=== PATIENT | female | born 1975 | race American Indian/Alaskan Native ===

== ENCOUNTER 2016-08-17 11:29 | Outpatient (CLI) | payer MEDICAID ==
[2016-08-17 12:30] VITALS: BP 109/64
--- NOTE | 2016-08-17 14:39 | Ultrasound Report ---
BIOPHYSICAL PROFILE: INDICATION: Gestational DM. COMPARISON: None similar. TECHNIQUE: Transabdominal ultrasound with Doppler interrogation. 2 - breathing movements 2 - movements 2 - posture and tone 2 - Qualitative amniotic fluid volume 8 - TOTAL SCORE OF POSSIBLE 8 Heart Rate (bpm) 157
--- NOTE | 2016-08-17 14:40 | Ultrasound Report ---
OB LIMITED INDICATION: Gestational DM. COMPARISON: None similar at this institution. TECHNIQUE: Transabdominal grayscale ultrasound with Doppler interrogation. Gestation: Franco Position: Cephalic Amniotic Fluid: WNL (7-24 cm) MISHA = 11.4 cm Heart Rate: 162 BPM
== END 2016-08-17 14:00 | disposition home or self-care (01) ==
LOC: TRG 11:29
PROVIDERS: ATTEND Obstetrics & Gynecology
DX: O09.523 Supervision of elderly multigravida, third trimester (principal); O24.419 Gestational diabetes mellitus in pregnancy, unspecified control; O47.03 False labor before 37 completed weeks of gestation, third trimester; Z3A.33 33 weeks gestation of pregnancy
CPT/HCPCS: 59025; 76815; 76819

== ENCOUNTER 2016-08-22 08:05 | Outpatient (CLI) | payer OTHER, MEDICAID ==
[2016-08-22] MEDS ORDERED: LACTATED RINGERS 500 ML IV ONE (08:19)
[2016-08-22 08:27] VITALS: BP 106/62
[2016-08-22] MEDS ORDERED: LACTATED RINGERS 1,000 ML IV ONE (08:30)
[2016-08-22] MEDS ORDERED: ZOFRAN IV NR (08:52)
[2016-08-22] MEDS ORDERED: FLEET PR NR (08:52)
[2016-08-22] MEDS ORDERED: COLACE PO NR (08:53)
== END 2016-08-22 10:23 | disposition home or self-care (01) ==
LOC: TRG 08:05
PROVIDERS: ATTEND Obstetrics & Gynecology
DX: O09.523 Supervision of elderly multigravida, third trimester (principal); Z3A.32 32 weeks gestation of pregnancy
CPT/HCPCS: 59025; 82962; 96360; 96374; J2405; J7120

== ENCOUNTER 2016-09-28 12:29 | Inpatient (IN) | payer OTHER, MEDICAID ==
--- NOTE | 2016-09-28 14:48 | Ultrasound Report ---
ULTRASOUND BIOPHYSICAL PROFILE: History: well being Technique: Transabdominal ultrasound with Doppler interrogation. 2 - breathing movements 2 - movements 0 - posture and tone 2 - Qualitative amniotic fluid volume 6 - TOTAL SCORE OF POSSIBLE 8 Heart Rate (bpm) 144
--- NOTE | 2016-09-28 14:59 | Ultrasound Report ---
ULTRASOUND OB LIMITED History: well being Technique: Transabdominal ultrasound with Doppler interrogation. Gestation: Single Position: Cephalic Amniotic Fluid: Normal MISHA = 7.7 cm Heart Rate: 153 BPM
[2016-09-28] MEDS ORDERED: LACTATED RINGERS 2,000 ML ONE (15:25)
[2016-09-28] MEDS ORDERED: PEPCID IV ONE (16:02)
[2016-09-28] MEDS ORDERED: BICITRA PO ONE (16:02)
[2016-09-28] MEDS ORDERED: REGLAN IV ONE (16:02)
[2016-09-28] MEDS ORDERED: REGLAN ONE (16:03)
--- NOTE | 2016-09-28 16:03 | Anesthesia Consultation ---
Anesthesia Consult and Med Hx Date of service: 09/28/16 - Airway Anesthetic Teeth Evaluation: Good ROM Head & Neck: Adequate Mental/Hyoid Distance: Adequate Mallampati Class: Class II Intubation Access Assessment: Possibly Difficult - Pulmonary Exam CTA: Yes - Cardiac Exam Cardiac Exam: RRR - Pre-Operative Health Status ASA Pre-Surgery Classification: ASA2 Proposed Anesthetic Plan: Epidural, Spinal - Pulmonary Hx Asthma: No - Cardiovascular System Hx Hypertension: No - Central Nervous System Hx Seizures: No Hx Psychiatric Problems: No - Endocrine Hx Renal Disease: No Hx Hypothyroidism: No Hx Hyperthyroidism: No - Hematic Hx Anemia: No Hx Sickle Cell Disease: No - Other Systems Hx Alcohol Use: No - Additional Comments Anesthesia Medical History Comments: MARSHA
--- NOTE | 2016-09-28 16:04 | Anesthesia Day of Surgery ---
Anesthesia Day of Surgery - Day of Surgery Patient Examined: Yes Patient H&P Reviewed: Yes Patient is NPO: Yes
--- NOTE | 2016-09-28 16:10 | History and Physical Report ---
History of Present Illness Date of examination: 09/28/16 Date of admission: 09/28/16 12:30 Chief complaint: abnormal testing Past History Past Medical History: diabetes (gestational) Past Surgical History: other (vaginoplasty, abdominoplasty) - Obstetrical History Expected Date of Delivery: 10/11/16 Actual Gestation: 38 Week(s) 1 Day(s) : 3 Medications and Allergies Allergies Allergy/AdvReac Type Severity Reaction Status Date / Time No Known Allergies Allergy Verified 08/17/16 11:46 Home Medications Medication Instructions Recorded Confirmed Last Taken Type Pnv with Ca,No.72/Iron/FA [Preplus 1 tab PO DAILY 08/17/16 08/22/16 08/21/16 21: 00 History Ca-Fe 27 mg-FA 1 mg Tb] 1 glyBURIDE [Glyburide] 0.5 tab PO BID 08/17/16 08/22/16 08/21/16 21:00 History 0.5 - Vital Signs Vital signs: Vital Signs Pulse BP 108 H 138/88 09/28/16 12:44 09/28/16 12:44 Temp Pulse Resp BP Pulse Ox 98.8 F 96 H 18 127/69 97 09/28/16 13:03 09/28/16 15:59 09/28/16 13:03 09/28/16 14:58 09/28/16 15:59 - Physical Exam Breasts: Positive: deferred Cardiovascular: Other (tachycardia) Lungs: Positive: Normal air movement Abdomen: Positive: normal appearance - Obstetrical FHR: category 2 Uterine Contraction Monitor Mode: External Results All other labs normal. Assessment and Plan - Patient Problems (1) 38 weeks gestation of Current Visit: Yes Status: Acute (2) Obesity (BMI 30.0-34.9) Current Visit: Yes Status: Acute (3) Status post vaginopexy Current Visit: Yes Status: Acute Plan to address problem: Patient with previous vaginal surgery for severe laceration and desires primary delivery. Consent reviewed and signed. Possible laparoscopy or laparotomy explained to patient. The risks and alternatives for this surgery were reviewed with the patient. She was informed of possible bleeding, infection, injury to bowel, bladder, ureters or other adjacent organs. Risks of regret emphasized. Permanent and irreversible condition explained to patient. Pt verbalized understanding. Consent reviewed and signed. Pre- operative instructions sheets given. The risks and alternatives to this surgery were reviewed with the patient. Infection precautions reviewed, pt to call for any signs or symptoms of infection. Patient given ample opportunity to have all her questions answered before signing informed consent. Patient informed of possible bleeding. 1%failure rate emphasized
[2016-09-28] MEDS ORDERED: ANCEF ONE (16:11)
[2016-09-28] MEDS ORDERED: MORPHINE ONE ×3 (16:11→19:21)
[2016-09-28 16:12] LABS: Basophils % (Auto) 0.3 % (0.0-1.8); Eosinophils % (Auto) 0.4 % (0.0-4.3); Hematocrit 40.9 % (30.3-42.9); Hemoglobin 13.5 gm/dl (10.1-14.3); Mean Corpuscular HGB Conc 33 % (30-34); Mean Corpuscular Hemoglobin 29 pg (28-32); Mean Corpuscular Volume 87 fl (79-97); Platelet Count 139 K/mm3 (140-440); Red Blood Count 4.69 M/mm3 (3.65-5.03); Red Cell Distribution Width 15.1 % (13.2-15.2); White Blood Count 8.5 K/mm3 (4.5-11.0)
[2016-09-28] MEDS ORDERED: NACL 0.9% IR ONE (16:20)
[2016-09-28] MEDS ORDERED: WATER FOR IRRIG STERILE IR ONE (16:20)
[2016-09-28] MEDS ORDERED: NACL 0.9% 100 ML ONE (16:36)
[2016-09-28] MEDS ORDERED: NEO SYNEPHRINE/NS Syringe(OR USE) IV ONE (17:00)
[2016-09-28] MEDS ORDERED: ANCEF/STERILE WATER 2 GM/20 ML 2 GM/20 ML SYRINGE IV NR (17:00)
[2016-09-28] MEDS ORDERED: LACTATED RINGERS 1,000 ML IV SCH (17:00)
[2016-09-28] MEDS ORDERED: PITOCin/NS 20 UNIT/1000ML DRIP 20 UNITS/1,000 ML BAG IV SCH ×2 (17:00→20:40)
[2016-09-28] MEDS ORDERED: TORADOL ONE (17:04)
[2016-09-28] MEDS ORDERED: ZOFRAN ONE (17:04)
[2016-09-28] MEDS ORDERED: DEMEROL ONE (17:35)
--- NOTE | 2016-09-28 17:39 | Operative Report ---
Operative Report Operative Report: Date of procedure: 09/28/2016 Pre-operative diagnosis: 1. Intrauterine at 38 weeks 2. Abnormal testing 3. Advanced maternal age 4. Previous vaginoplasty due to severe vaginal laceration with her last delivery, patient desire primary 5. Desires sterilization Post-operative diagnosis: 1. Intrauterine at 38 weeks 2. Abnormal testing 3. Advanced maternal age 4. Previous vaginoplasty due to severe vaginal laceration with her last delivery, patient desire primary 5. Desires sterilization Procedure name(s): 1. Low transverse section 2. Bilateral salpingectomy for sterilization Surgeon: Nuvia Joy MD Compressor Station Chief Engineer: Nova Grier CNM Anesthesia: Epidural EBL: 700 mL Complications: None Findings: Liveborn male infant. Apgars 8 at 1 minute and 8 at 9 minutes. Grossly normal uterus tubes and ovaries. Procedure: After risks, benefits, and complications and alternatives and consequences, were discussed with patient, and she voiced her understanding and desired to proceed. Patient was taken to the OR, where epidural anesthesia was placed. She was then placed in the left lateral tilt position, and prepped and draped in the usual sterile fashion. After timeout was performed, and an appropriate level of anesthesia was noted, a Pfannenstiel incision was made and extended to the fascia. The fascia was incised and extended in a lateral direction. The overlying fascia was sharply dissected away from the underlying rectus muscles in the superior-inferior direction. The midline was entered bluntly. The vesicouterine fold was incised and with blunt and sharp dissection the bladder flap was created. A transverse incision was made in the lower uterine segment and extended in the superior lateral direction with finger fractionation. Clear fluid was noted. The infant was delivered from the cephalic position.The cord was doubly clamped and cut. The infant's mouth and nose were bulb suctioned. And the infant was given to the resuscitation team present. The placenta was manually extracted. The uterus was exteriorized and cleaned any products of conception and placental tissue. The incision was reapproximated using 0 Vicryl in a running interlocking stitch. Grossly normal tubes and ovaries were noted. Once confirmation was obtained from the patient proceed with sterilization the right tube was elevated and using the LigaSure device salpingectomy was performed. The same procedure was performed on the left tube. Once hemostasis was noted, the uterus was allowed back into the pelvic cavity. The pelvis was irrigated with warm normal saline. The mesosalpinx bilaterally were visualized and noted to be hemostatic. Once hemostasis was noted, attention was turned to the rectus muscles. The rectus muscles were reapproximated using 0 Vicryl in interrupted simple stitch fashion. Once hemostasis was noted, the fascia was reapproximated using 0 Vicryl in a simple running stitch. Once hemostasis was noted, the subcuticular adipose tissue was reapproximated using 0 Vicryl in an interrupted stitch. The incision was irrigated with normal saline. The incision was then reapproximated using 4-0 Vicryl on a Vance needle in a subcuticular manner. Patient tolerated the procedure well she was taken to recovery room in stable condition. Specimens sent to pathology: Placenta and bilateral fallopian tubes Counts were correct 3
[2016-09-28] MEDS ORDERED: MORPHINE IV PRN ×2 (19:19→20:40)
[2016-09-28] MEDS ORDERED: TORADOL IV PRN (19:19)
[2016-09-28] MEDS ORDERED: SODIUM CHLORIDE FLUSH SYRINGE 10 ML IV PRN (20:40)
[2016-09-28] MEDS ORDERED: ZOFRAN IV PRN (20:40)
[2016-09-28] MEDS ORDERED: NARCAN 0.4 MG/1 ML IV PRN (20:40)
[2016-09-28] MEDS ORDERED: TYLENOL PO PRN (20:40)
[2016-09-28] MEDS ORDERED: MILK OF MAGNESIA PO PRN (20:40)
[2016-09-28] MEDS ORDERED: TYLENOL PR PRN (20:40)
[2016-09-28] MEDS ORDERED: MYLICON PO PRN (20:40)
[2016-09-28] MEDS ORDERED: TUCKS PAD TP PRN (20:40)
[2016-09-28] MEDS ORDERED: LANSINOH TP PRN (20:40)
[2016-09-28] MEDS: MORPHINE IV PRN (21:03)
[2016-09-28] MEDS: LACTATED RINGERS 1,000 ML IV SCH (22:55)
[2016-09-28] MEDS: TORADOL IV PRN (23:08)
[2016-09-29] MEDS: ANCEF/NS 1 GM/50 ML 1 GM/50 ML BAG IV SCH ×2 (00:36→09:15)
[2016-09-29] MEDS: MORPHINE IV PRN ×2 (00:57→04:36)
[2016-09-29] MEDS: TORADOL IV PRN (06:08)
[2016-09-29 07:01] LABS: Hematocrit 32.1 % (30.3-42.9); Hemoglobin 10.7 gm/dl (10.1-14.3)
--- NOTE | 2016-09-29 07:09 | Progress Note ---
Assessment and Plan Patient doing well, reports pain well controlled. Dana alegria, VSSAF, H&H 10.7/ 32. dressing removed, incision D&I. Encouraged patient to begin pumping and having baby latch in NICU. Continue postop pathway. - Patient Problems (1) delivery delivered Current Visit: Yes Status: Acute Subjective - Subjective Date of service: 09/29/16 Principal diagnosis: postop day #1 s/p primary c/s Patient reports: appetite normal, voiding normally, pain well controlled, ambulating normally, no dizzy ambulation, no nauseated Yeso: in NICU Objective - Vital Signs Latest vital signs: Vital Signs Temp Pulse Pulse Resp BP BP Pulse Ox 09/29/16 05:10 98.6 F 85 18 124/65 09/29/16 00:00 99.5 F 94 H 20 118/68 09/28/16 20:00 98.5 F 86 20 136/76 09/28/16 19:29 20 09/28/16 17:32 97.6 F 09/28/16 16:04 97 H 97 09/28/16 15:59 96 H 97 09/28/16 15:58 104 H 97 09/28/16 15:56 100 H 96 09/28/16 15:51 107 H 95 09/28/16 14:58 95 H 127/69 09/28/16 13:03 98.8 F 18 09/28/16 12:44 108 H 138/88 Intake and Output 09/28/16 09/29/16 09/29/16 22:59 06:59 14:59 Intake Total 2400 240 Output Total 175 500 Balance 2225 -260 Intake: IV 2400 Intake, Free Water 240 Output: Urine 175 500 Indwelling Catheter 500 Other: Total, Output Amount 500 Weight 103.419 kg Estimated Blood Loss 700 - Exam Breasts: Present: normal Cardiovascular: Present: Regular rate Lungs: Present: Clear to auscultation, Normal air movement Abdomen: Present: normal appearance, soft Vulva: both: normal Uterus: Present: normal, firm, fundal height at umbilicus Extremities: Present: normal Incision: Present: normal, dry, intact - Labs Labs: Abnormal lab results 09/28/16 09/29/16 Range/Units 15:55 06:10 Plt Count 139 L (140-440) K/mm3 [place] % (Auto) 10.0 H (0.0-7.3) % POC Glucose 129 H (70-105)
[2016-09-29] MEDS: LACTATED RINGERS 1,000 ML IV SCH (07:29)
[2016-09-29] MEDS: PERCOCET 5/325 PO PRN ×3 (09:27→22:44)
--- NOTE | 2016-09-29 17:03 | Progress Note ---
Subjective Date of service: 09/29/16 Principal diagnosis: postop day #1 s/p primary c/s Interval history: 1st POD after Patient is in the bed, comfortable. Pain is well controlled with pain meds. Ambulated well. No residual neurological deficit. No pruritus. No anesthesia complications Objective - Constitutional Vitals: Vital Signs - 12hr 09/29/16 09/29/16 09/29/16 05:10 09:21 12:53 Temperature 98.6 F 98.9 F 98.7 F Pulse Rate [ 85 86 87 Left From Monitor] Respiratory 18 18 18 Rate Blood Pressure 124/65 135/69 119/67 [Left Arm] O2 Sat by Pulse 100 100 Oximetry 09/29/16 16:35 Temperature 98.4 F Pulse Rate [ 106 H Left From Monitor] Respiratory 20 Rate Blood Pressure 140/87 [Left Arm] O2 Sat by Pulse Oximetry - Labs CBC & Chem 7: 09/29/16 06:20 Labs: Abnormal lab results 09/29/16 Range/Units 06:10 POC Glucose 129 H (70-105)
[2016-09-29] MEDS: MOTRIN PO PRN (22:44)
[2016-09-30] MEDS ORDERED: BOOSTRIX IM ONE (06:00)
--- NOTE | 2016-09-30 06:26 | Progress Note ---
Assessment and Plan - Patient Problems (1) delivery delivered Onset Date: ~09/28/16 Current Visit: Yes Status: Acute Plan to address problem: pt A&O X 3 No c/o voiced VSS FF below umb Lochia scant Adb binder on Incision D& I H&H drop r/t blood loss from surgery Pt is asymptomatic Doing well s/p c /s P: continue pathway Will plan d/c tomorrow Subjective - Subjective Date of service: 09/30/16 (req to stay until tomorrow) Principal diagnosis: postop day #2 s/p primary c/s Patient reports: appetite normal, voiding normally, pain well controlled, ambulating normally Lula: in NICU Objective - Vital Signs Latest vital signs: Vital Signs Temp Pulse Resp BP Pulse Ox 09/30/16 04:20 98.2 F 94 H 18 123/62 09/29/16 23:48 98.4 F 108 H 20 148/68 09/29/16 20:10 98.5 F 103 H 20 123/71 09/29/16 16:35 98.4 F 106 H 20 140/87 09/29/16 12:53 98.7 F 87 18 119/67 100 09/29/16 09:21 98.9 F 86 18 135/69 100 Intake and Output 09/29/16 09/29/16 09/30/16 14:59 22:59 06:59 Intake Total 1200 300 Output Total 600 Balance -600 1200 300 Intake: Oral 960 Intake, Free Water 240 300 Output: Urine 600 Void 600 Other: Total, Intake Amount 960 Total, Output Amount 300 # Voids Void 1 2 1 - Exam Breasts: Present: normal Cardiovascular: Present: Regular rate Lungs: Present: Normal air movement Abdomen: Present: normal appearance, soft Uterus: Present: normal, fundal height below umbilicus Extremities: Present: edema Deep Tendon Reflex Grade: Normal +2 Incision: Present: dry, intact - Labs Labs: Abnormal lab results 09/29/16 Range/Units 06:10 POC Glucose 129 H (70-105)
[2016-09-30] MEDS: MOTRIN PO PRN ×3 (09:23→22:24)
[2016-09-30] MEDS: PERCOCET 5/325 PO PRN (22:25)
--- NOTE | 2016-10-01 08:34 | Discharge Summary ---
Providers - Providers Date of Admission: 09/28/16 12:30 Date of discharge: 10/01/16 (desires d/c home today) Attending physician: YANNICK POZO 09/28/16 20:40 Consult to Diesel Engine Fitter [CONS] Routine Reason For Exam: Primary care physician: YANNICK POZO Hospitalization Reason for admission: section (nonreassuring monitoring) Delivery: Incision: normal, dry, intact complications: none Discharge diagnosis: IUP at term delivered baby: male Hospital course: uncomplicated c/s delivery Condition at discharge: Good Disposition: DC-01 TO HOME OR SELFCARE - Discharge Diagnoses (1) delivery delivered Status: Acute Plan - Discharge Medications Prescriptions: Ibuprofen [Motrin 800 MG tab] 800 mg PO TID PRN #30 tablet PRN Reason: Pain Lidocain2.5%/Prilocai2.5% [Emla] 5 gm TP ONCE #1 tube oxyCODONE /ACETAMINOPHEN [Percocet 5/325 mg] 1 - 2 tab PO Q4HR PRN #30 tablet PRN Reason: Pain - Provider Discharge Summary Activity: routine, no sex for 6 weeks, no heavy lifting 4 weeks, no strenuous exercise Diet: routine Instructions: routine Additional instructions: [] Smoking cessation referral if applicable(refer to patient education folder for contact #) [] Refer to [facility] Booklet Call your doctor immediately for: * Fever > 100.5 * Heavy vaginal bleeding ( >1 pad per hour) * Severe persistent headache * Shortness of breath * Reddened, hot, painful area to leg or breast * Drainage or odor from incision. * Keep incision clean and dry at all times and follow doctor's instructions regarding bathing/showering - Follow up plan Follow up: YANNICK POZO MD [Primary Care Provider] - 7 Days (Congratulations! Please call [phone] to schedule your son's circumcision and your incision check in 1 week. Bring EMLA cream to your son's appointment and await further instructions. Call for any quesitons or concerns. )
[2016-10-01] MEDS: MOTRIN PO PRN (08:56)
[2016-10-01] MEDS: PERCOCET 5/325 PO PRN (08:57)
[2016-10-01 09:37] VITALS: BP 142/80
== END 2016-10-01 15:30 | disposition home or self-care (01) | DRG 766 ==
LOC: TRG 12:29 → APU 12:30 → TRG 12:30 → OB 20:22
PROVIDERS: ADMIT Obstetrics & Gynecology; ATTEND Obstetrics & Gynecology
PROC: 10D00Z1 Extraction of Products of Conception, Low, Open Approach (ICD-10-PCS; principal; 2016-09-28)
PROC: 0UT70ZZ Resection of Bilateral Fallopian Tubes, Open Approach (ICD-10-PCS; 2016-09-28)
DX: O99.214 Obesity complicating childbirth (principal); O09.523 Supervision of elderly multigravida, third trimester; Z3A.38 38 weeks gestation of pregnancy; Z37.0 Single live birth; Z68.35 Body mass index [BMI] 35.0-35.9, adult; E66.9 Obesity, unspecified
CPT/HCPCS: 36415; 76815; 76819; 82962; 85014; 85018; 85025; 86592; 86850; 86900; 86901; 88302; 88307; 99211; G0463; J0690; J1885; J2175; J2270; J2370; J2405; J2590; J2765; J7120